=== PATIENT | female | born 1980 | race Caucasian/White ===

== ENCOUNTER 2016-09-28 01:27 | Inpatient (IN) | payer BC, OTHER ==
--- NOTE | ~2016-09-28 | CO ---
Unit #: [id number] #: [id number] Patient: ORLY CLAY [id number] [place] [address] [id number] MR#: [id number] NAME: ORLY CLAY. ROOM: [facility] Age: 36 Sex: F Admission Date: 09/28/2016 : 1980 Attending Physician: Geovanna Dumont M.D. Primary Care Physician: Pamela Hurd Jr., M.D. Consultation Date: 09/28/2016 CONSULTATION REPORT SUBJECTIVE Orly is a 36-year-old with an abnormal urinalysis on admission. She had no complaints of urgency, frequency, or dysuria. OBJECTIVE Admission urinalysis, 3+ bacteria. ASSESSMENT Urinary tract infection. PLAN Bactrim DS one p.o. b.i.d. x3 days. Dictated by... Tasah Naqvi P.A.-C. for Kareem Dumont/zac TD: 09/30/2016 02:52 JOB #: [id number] CONSULTATION REPORT Page 1 of 1 X Tasha Naqvi CONSULTATION REPORT
--- NOTE | ~2016-09-28 | DS ---
Unit #: [id number] #: [id number] [facility] [id number] [facility] [address] [place] [address] [id number] MR#: [id number] NAME: BETTE BECERRA. ROOM: [facility] Age: 36 Sex: F Admission Date: 09/28/2016 : 1980 Discharge Date: 09/30/2016 Attending Physician: Geovanna Dumont M.D. Primary Care Physician: Pamela Hurd Jr., M.D. DISCHARGE SUMMARY IDENTIFYING DATA Ms. Becerra is a 36-year-old, , white female, who is known to me from previous encounter, who was brought to the hospital by her family. DISCHARGE DIAGNOSES Psychiatric: Bipolar disorder, most recent episode depressed, recurrent, moderate, without psychotic features. Medical: None. Stressors: Moderate psychosocial stressors. HISTORY OF PRESENT ILLNESS Please see initial psychiatric evaluation for details. PAST PSYCHIATRIC HISTORY Please see initial psychiatric evaluation for details. PAST MEDICAL HISTORY Please see initial psychiatric evaluation for details. HOSPITAL COURSE The patient was admitted to the adult psychiatric unit at [facility] and was oriented to the hospital environment. Routine p.r.n. medications were initiated, and she was started back on home medications including the Saphris, which was increased to 5 mg in the morning and 10 mg at bedtime with good tolerability and therapeutic response, followed by which, it was decided she will be discharged home and will continue treatment on an outpatient basis. DISCHARGE MEDICATIONS Saphris 5 mg sublingual in the morning and 10 mg sublingual at bedtime. DISCHARGE CONDITION Stable. PROGNOSIS Fair. Dictated by... Geovanna Dumont M.D. Unit #: [id number] #: [id number] Patient: BETTE BECERRA IAA/modl TD: 11/01/2016 00:49 JOB #: [id number] DISCHARGE SUMMARY Page 1 of 1 X Geovanna Dumont MD X DISCHARGE SUMMARY
--- NOTE | ~2016-09-28 | PA ---
Unit #: [id number] #: [id number] Patient: BETTE BECERRA [id number] [facility] [address] [place] [address] [id number] I MR#: [id number] NAME: BETTE BECERRA. ROOM: P257 Age: 36 Sex: F Admission Date: 09/28/2016 : 1980 Date of Assessment: 09/28/2016 Attending Physician: Geovanna Dumont M.D. Admitting Physician: Geovanna Dumont M.D. Primary Care Physician: Pamela Hurd Jr., M.D. PSYCHIATRIC ASSESSMENT DATE OF SERVICE 09/28/2016. IDENTIFYING DATA Ms. Becerra is a 36-year-old white female, who is a resident of [place], [place], and is known to us from previous encounter, was self-referred to the hospital and was brought to the hospital by her family. CHIEF COMPLAINT "I feel paranoid and different thoughts." HISTORY OF PRESENT ILLNESS Ms. Becerra is a 36-year-old white female with history of mood disorder and psychosis and is known to us from previous encounter, was brought to the hospital with increasing paranoia and psychosis and reports that she has been seeing shadows of people and thinking "I have superhero palmer." The patient reports this is occurring approximately for the last 2 weeks and reports that she is scared that she is going to deteriorate to previous symptoms back in 2013. The patient reports she had a psychiatric appointment on 09/28/2016 and reports that shadows come and go and reports that she believes that she is able to read people's mind and is able to predict things that will happen and the patient's stated "I have consent for these increasing condition because last time they happened and she deteriorated very quickly." The patient was seen to be having some thought blocking and unable to articulate concerns and appears to be decompensating on her psychosis and as such, recommendation for inpatient level of care for safety and stabilization was made. SUBSTANCE ABUSE HISTORY The patient denies any alcohol or drug abuse. PAST PSYCHIATRIC HISTORY The patient has had history of inpatient and outpatient psychiatric treatment and has been diagnosed and treated for schizoaffective disorder, bipolar type, and review of the medical records indicate that currently she is on Saphris, but does not appear to be showing a therapeutic response to medication. PAST MEDICAL HISTORY The patient's medical history is insignificant. ALLERGIES Unit #: [id number] #: [id number] Patient: BETTE BECERRA No known medication allergies. PERSONAL AND SOCIAL HISTORY A 36-year-old white female, who reports that she lives at home with her and her 2 children and has fairly decent social support system. MENTAL STATUS EXAMINATION Young white female who was casually dressed with fair personal hygiene, appears to be in no acute distress or discomfort. She was awake and alert on interaction with intact orientation to time, place, and person. Her mood was anxious and depressed. Her speech was slow and restricted in content. Her thought processes were disorganized with some looseness of associations and flight of ideas and auditory and visual hallucinations, paranoid ideations, and delusional behavior. Her insight and judgment remain significantly impaired. DIAGNOSTIC IMPRESSION Psychiatric: Schizoaffective disorder, bipolar type, most recent episode depressed, recurrent, moderate, with psychosis. Medical: None. Stressors: Moderate psychosocial stressors. TREATMENT PLAN 1. The patient has presented with history of mood disorder and has been decompensating and will need inpatient hospitalization for safety and stabilization. We will start her back on her home medications. We will adjust the medications and monitor response. 2. Supportive therapy was provided to the patient. ESTIMATED LENGTH OF STAY 5 to 7 days. ABILITY TO HELP SELF Limited. WILLINGNESS TO HELP SELF The patient appears to be willing to help self. STRENGTHS 1. Communicative. 2. Cooperative. PROBLEMS 1. Chronic dysphoric symptoms. 2. Poor social support system. DISCHARGE CRITERIA This will be contingent upon the patient's ability to show resolution of her depression and anxiety and psychosis and ability to stay safe to herself, particularly after discharge from the hospital. Dictated by... Kareem Erickson/zac TD: 09/28/2016 07:38 Unit #: [id number] #: [id number] Patient: BETTE BECERRA JOB #: [id number] PSYCHIATRIC ASSESSMENT Page 1 of 1 X Geovanna Dumont MD X PSYCHIATRIC ASSESSMENT
--- NOTE | ~2016-09-28 | HP ---
Unit #: [id number] #: [id number] Patient: ORLY CLAY [id number] [place] [address] [id number] MR#: [id number] NAME: ORLY CLAY. ROOM: P257 Age: 36 Sex: F Admission Date: 09/28/2016 : 1980 Attending Physician: Geovanna Dumont M.D. Admitting Physician: Geovanna Dumont M.D. Primary Care Physician: Pamela Hurd Jr., M.D. HISTORY AND PHYSICAL HISTORY OF PRESENT ILLNESS Orly is a 36 year old admitted to [address] [place] [address] with psychotic behavior. She reports paranoia and visual hallucinations. PAST MEDICAL HISTORY PCOS. PAST SURGICAL HISTORY Nothing reported. ALLERGIES Latex. SOCIAL HISTORY She denies cigarettes, alcohol and illicit drug use. FAMILY HISTORY Medically noncontributory. REVIEW OF SYSTEMS She does not answer questions appropriately. There were no reports of nausea, vomiting or diarrhea. She has had no cough or increased temperature. CURRENT MEDICATIONS 1. Saphris 5 mg q.a.m., 10 mg q.h.s. 2. Nicotine patch 14 mg daily. 3. Milk of Magnesia p.r.n. 4. Maalox p.r.n. 5. Tylenol p.r.n. PHYSICAL EXAMINATION GENERAL: Alert, well-nourished, in no apparent distress. VITAL SIGNS: Blood pressure 114/80, heart rate 82, respirations 16, temperature 98.6. WEIGHT: 157. HEIGHT: 5 feet 5 inches. SKIN: Warm and dry without rash or lesion. HEENT: Normocephalic. TMs not viewed. Oral and nasal passages clear. Conjunctivae clear. PERRLA. EOMs intact. NECK: Supple without lymphadenopathy or thyromegaly. HEART: Regular rate and rhythm without murmur. LUNGS: Clear. Unit #: [id number] #: [id number] Patient: ORLY CLAY ABDOMEN: Soft, nontender. : Not done. EXTREMITIES: No evidence of cyanosis, clubbing or edema. Moves all without focal deficit. NEUROLOGICAL: Grossly within normal limits. Cranial Nerves: II: Visual laurent are intact. III, IV AND : Extraocular movements are intact. Pupils are equal, round and reactive to light. V: Facial sensation is grossly normal. VII: Facial movements and expression are normal. VIII: Auditory acuity grossly intact. IX, X: Uvula is midline. Phonation is normal. XI: Patient shrugs shoulders and turns head normally. XII: Tongue protrudes in the midline. Sensory and Motor Function: Sensory and motor sensation is grossly normal. Motor: moves all extremities well. Coordination: Gait is normal. Deep Tendon Reflexes: Intact. IMPRESSION Psychiatric admission. RECOMMENDATIONS PSYCHIATRIC: Per psychiatrist. MEDICAL: See no contraindications to participate in facility's activities. MEDICAL PROGNOSIS Good. MEDICAL CONDITION Stable. Dictated by... Tasha Naqvi P.A.-C. for Kareem Dumont/yeimi TD: 09/28/2016 22:27 JOB #: [id number] HISTORY AND PHYSICAL Page 1 of 1 X Tasha Naqvi X HISTORY AND PHYSICAL
--- NOTE | ~2016-09-28 | PN ---
Unit #: [id number] #: [id number] Patient: ORLY BECERRA [id number] [facility] [address] [place] [address] [id number] MR#: [id number] NAME: ORLY BECERRA. ROOM: [facility] Age: 36 Sex: F Admission Date: 09/28/2016 : 1980 Attending Physician: Geovanna Dumont M.D. Admitting Physician: Geovanna Dumont M.D. Primary Care Physician: Pamela Hurd Jr., M.D. [facility] PROGRESS NOTES DATE 09/30/2016 DISCUSSION Ms. Orly Becerra is a 36-year-old white female seen on [address] on 09/30/2016. The patient reported that she is still hearing voices, flat, sad, dysphoric mood guarded. Still somewhat paranoid. The patient's vital signs 98.3, 98, 16, 129/87. The patient was very watchful still hearing voices. Complete review of systems unremarkable. MENTAL STATUS EXAMINATION General appearance, the patient dressed casually in hospital attire. Attention span and concentration poor. Oriented to time, place and person. Mood and affect was labile Speech monotone. Thought process circumstantial. Thought content guarded, paranoid, delusional. Recent and remote memory poor. Insight and judgement poor. DIAGNOSES Schizoaffective disorder bipolar type most recent episode depressed. ASSESSMENT/PLAN Advise at this time to continue with current therapy and treatment and behavior modification program on the inpatient unit. Continue with current medication Saphris. If needed we will make further adjustment of medication. Dictated by... Kareem Linda/dex TD: 10/03/2016 03:57 JOB #: [id number] Unit #: [id number] #: [id number] Patient: ORYL BECERRA PROGRESS NOTES Page 1 of 1 X Dawood Retana MD X PROGRESS NOTE
--- NOTE | ~2016-09-28 | PN ---
Unit #: [id number] #: [id number] Patient: BETTE BECERRA [id number] [facility] [address] [place] [address] [id number] MR#: [id number] NAME: BETTE BECERRA. ROOM: [facility] Age: 36 Sex: F Admission Date: 09/28/2016 : 1980 Attending Physician: Geovanna Dumont M.D. Admitting Physician: Geovanna Dumont M.D. Primary Care Physician: Pamela Hurd Jr., M.D. [facility] PROGRESS NOTES DATE 09/29/2016 DISCUSSION Ms. Becerra is a 36-year-old white female who was seen today and chart was reviewed and case was discussed with the staff. She has been anxious, withdrawn and rather seclusive to herself. Meanwhile, she has been cooperative with treatment recommendations and has been taking medications and tolerating them fairly well and reports significant improvement in her depression and anxiety. MENTAL STATUS EXAMINATION Young white female who was casually dressed with fair personal hygiene and appears to be in no acute distress or discomfort. She was awake and alert on interaction with intact orientation. Her mood was anxious and depressed with congruent affect. Her speech is slow and goal-directed. She denies ideations. Her insight and judgement remains slightly impaired. TREATMENT PLAN 1. We will continue on current medications and treatment protocol. Will monitor her response to the medications and make further adjustments as needed. 2. Will continue to follow up. Dictated by... Kareem Erickson/yeimi TD: 10/02/2016 08:59 JOB #: [id number] Unit #: [id number] #: [id number] Patient: BETTE BECERRA PROGRESS NOTES Page 1 of 1 X Geovanna Dumont MD PROGRESS NOTE
[2016-09-28 10:01] LABS: EOSINOPHIL# 0.5 X10e3 (0-0.7); EOSINOPHIL% 5.8 % (0.0-7.0); HEMATOCRIT 46.5 % (35.0-45.0); HEMOGLOBIN 15.5 gm/dL (12.0-16.0); LYMPHOCYTE# 2.3 X10e3 (1.0-3.5); LYMPHOCYTE% 27.8 % (17.0-45.0); MEAN CELL VOLUME 91.4 FL (83-96); MEAN CORPUSCULAR HEMOGLOBIN 30.5 PG (28-34); MEAN CORPUSCULAR HGB CONC 33.4 g/dL (30-36); MEAN PLATELET VOLUME 9.1 FL (6.5-11.5); MONOCYTE# 0.7 X10e3 (0-1.0); MONOCYTE% 8.7 % (3.0-12.0); NEUTROPHIL# 4.9 X10e3 (1.5-7.1); NEUTROPHIL% 57.7 % (40-75); PLATELET COUNT 239 X10e3 (140-420); RED BLOOD COUNT 5.09 X10e (3.90-5.30); WHITE BLOOD COUNT 8.4 X10e3 (4.0-10.5)
[2016-09-28 10:08] LABS: DIFF IND NO
[2016-09-28 10:19] LABS: THYROID STIMULATING HORMONE 2.02 uIU/ml (0.34-5.60)
[2016-09-28 10:24] LABS: ALBUMIN SERUM 3.8 g/dL (3.5-5.0); BILIRUBIN,TOTAL 0.5 mg/dL (0.2-2.0); CALCIUM SERUM 9.1 mg/dL (8.4-10.2); CREATININE SERUM 0.6 mg/dL (0.6-1.4); GLOM FILT RATE Estimated 118.9 mL/min (>60); POTASSIUM 4.3 mmol/L (3.5-5.1); PROTEIN TOTAL SERUM 6.6 g/dL (6.0-8.3)
[2016-09-28 10:26] LABS: FREE THYROXIN (T4) 0.93 ng/dL (0.58-1.64)
[2016-09-28 10:33] LABS: URINE APPEARANCE TURBID; URINE BILIRUBIN NEG (NEG); URINE BLOOD 1+ (NEG); URINE COLOR DK YELLOW; URINE GLUCOSE NEG (NEG); URINE KETONE TRACE (NEG); URINE LEUKOCYTE ESTERASE TRACE (NEG); URINE NITRATE NEG (NEG); URINE PH 5.5 (5-8); URINE PROTEIN NEG (NEG); URINE SPECIFIC GRAVITY 1.028 (1.003-1.035)
[2016-09-28 10:36] LABS: URINE BACTERIA AUWI 3+ (NEGATIVE); URINE SQUAMOUS EPITHELIAL CELL MOD /[HPF]
[2016-09-28 11:02] LABS: U HYALINE CASTS AUWI 0-2 /[LPF]
[2016-09-28 11:03] LABS: URBCS1 AUWI 0-2 /[HPF] (0-2); URINE AMORPHOUS SEDIMENT AMORP URATES
[2016-09-28 11:08] LABS: AMPHETAMINE NEG (NEG); BARBITURATES NEG (NEG); BENZODIAZEPINES NEG (NEG); COCAINE NEG (NEG); MARIJUANA NEG (NEG); OPIATES NEG (NEG); TRICYCLIC ANTIDEPRESSANTS NEG (NEG); U METHADONE NEG (NEG)
== END 2016-09-30 13:45 | disposition home or self-care (01) | DRG 885 ==
LOC: P2L 01:27
PROVIDERS: Psychiatry & Neurology Psychiatry
DX: F25.0 Schizoaffective disorder, bipolar type (principal); F31.32 Bipolar disorder, current episode depressed, moderate; N39.0 Urinary tract infection, site not specified; F29 Unspecified psychosis not due to a substance or known physiological condition; F41.9 Anxiety disorder, unspecified; E28.2 Polycystic ovarian syndrome; Z91.040 Latex allergy status
CPT/HCPCS: 80053; 80307; 81003; 84439; 84443; 85025